=== PATIENT | female | born 1940 ===

== ENCOUNTER 2016-12-02 08:17 | Inpatient (IN) | payer OTHER ==
--- NOTE | 2016-12-02 08:40 | ED PDOC ---
HPI: Nose Bleed Time Seen by Provider: 12/02/16 08:21 Chief Complaint (Nursing): ENT Problem Chief Complaint (Provider): Nose bleed History Per: Patient History/Exam Limitations: no limitations Onset/Duration Of Symptoms: Mins Current Symptoms Are (Timing): Still Present Location Of Bleeding: Both Nares Symptoms Have Been: Continuous Severity: Moderate Anticoagulant/Antiplatlet Use?: Yes (warfarin) Additional Complaint(s): The pt is a 76yo female with PMHx of aortic and mitral valve replacement, pacemaker insertion, HTN, currently on Warfarin due to her valve replacement surgeries, presents to the ED for evaluation of spontaneous, atraumatic epistaxis from both nares. Pt reports she feels the blood dripping in the back of her throat. She denies any dizziness, lightheadedness and offers no additional medical complaints. Past Medical History Reviewed: Historical Data, Nursing Documentation, Vital Signs Vital Signs: Last Vital Signs Temp 98.3 F 12/02/16 08:27 Pulse 103 H 12/02/16 08:27 Resp 18 12/02/16 08:27 BP 194/95 H 12/02/16 08:27 Pulse Ox 98 12/02/16 08:27 - Medical History PMH: HTN - Surgical History Surgical History: Pacemaker Other surgeries: Aortic and mitral valve replacement - Family History Family History: States: Unknown Family Hx - Allergies Allergies/Adverse Reactions: Allergies Allergy/AdvReac Type Severity Reaction Status Date / Time Penicillins Allergy RASH Verified 12/02/16 08:27 Review of Systems ROS Statement: Except As Marked, All Systems Reviewed And Found Negative ENT: Positive for: Nose Discharge (bleeding from both nostrils) Cardiovascular: Negative for: Light Headedness Neurological: Negative for: Dizziness Physical Exam - Reviewed Nursing Documentation Reviewed: Yes Vital Signs Reviewed: Yes - Physical Exam Appears: Positive for: Well, Non-toxic, No Acute Distress Head Exam: Positive for: ATRAUMATIC, NORMAL INSPECTION, NORMOCEPHALIC Skin: Positive for: Normal Color (no ecchymosis or bruising noted). Negative for: Rash Eye Exam: Positive for: Normal appearance ENT: Positive for: Other (Oozing blood noted to both nares) Neck: Positive for: Normal, Supple Cardiovascular/Chest: Positive for: Irregularly Irregular Respiratory: Positive for: Normal Breath Sounds. Negative for: Respiratory Distress Gastrointestinal/Abdominal: Positive for: Normal Exam, Soft. Negative for: Tenderness Neurologic/Psych: Positive for: Alert, Oriented. Negative for: Motor/Sensory Deficits - Laboratory Results Result Diagrams: 12/02/16 09:10 12/02/16 09:10 - ECG O2 Sat by Pulse Oximetry: 98 (RA) Pulse Ox Interpretation: Normal - Progress Re-evaluation Time: 11:09 Condition: Re-examined (Episode of hypotension and tachycardia which responded to bolus IV saline. Bleeding stopped) Medical Decision Making Medical Decision Making: Time: 829 Impression: Epistaxis in setting of warfarin use Plan: * CMP * CBC * PT/INR * Reassess Scribe Attestation: Documented by Bety Chow acting as a scribe for Ethna Mccord MD. Provider Attestation: All medical record entries made by the Scribe were at my direction and personally dictated by me. I have reviewed the chart and agree that the record accurately reflects my personal performance of the history, physical exam, medical decision making, and the department course for this patient. I have also personally directed, reviewed, and agree with the discharge instructions and disposition. Disposition - Clinical Impression Clinical Impression: Epistaxis, Warfarin-induced coagulopathy, Hypotension - Patient ED Disposition Is Patient to be Admitted: Yes - Disposition Disposition Time: 11:13 Condition: FAIR - Pt Status Changed To: Hospital Disposition Of: Observation - POA Present On Arrival: None
[2016-12-02] MEDS ORDERED: Phenylephrine 0.5% Nasal Spray NAS ONE (09:09)
[2016-12-02] MEDS ORDERED: Sodium Chloride 0.9% 1,000 ML IV STA (09:14)
[2016-12-02 09:32] LABS: BASO % 0.3 % (0.0-2.0); EOS # 0.1 K/uL (0.0-0.7); EOS % 2.6 % (0.0-4.0); HEMATOCRIT 35.6 % (34.0-47.0); LYMPH # 1.1 K/uL (1.0-4.3); LYMPH % 18.9 % (20.0-40.0); MEAN CELL VOLUME 88.9 fl (81.0-99.0); MEAN CORPUSCULAR HEMOGLOBIN 31.2 pg (27.0-31.0); MEAN CORPUSCULAR HGB CONC 35.1 g/dL (33.0-37.0); MEAN PLATELET VOLUME 7.4 fl (7.2-11.7); MONO # 0.4 K/uL (0.0-0.8); NEUT % 71.2 % (50.0-75.0); RED CELL DISTRIBUTION WIDTH 13.2 % (11.5-14.5); WHITE BLOOD COUNT 5.6 K/uL (4.8-10.8)
[2016-12-02] MEDS ORDERED: Phenylephrine 0.25% NASAL Spray (15ML) NAS STA (09:35)
[2016-12-02 09:54] LABS: ALB/GLOB RATIO 1.2 (1.0-2.1); ALKALINE PHOSPHATASE 71 U/L (38-126); ALT/SGPT 31 U/L (9-52); AST/SGOT 36 U/L (14-36); BILIRUBIN,TOTAL 0.5 mg/dl (0.2-1.3); BLOOD UREA NITROGEN 16 mg/dl (7-17); CALCIUM 9.3 mg/dL (8.4-10.2); CARBON DIOXIDE 22 mmol/L (22-30); CHLORIDE 97 mmol/L (98-107); GFR AFRICAN-AMERICAN > 60; GLUCOSE,RANDOM 195 mg/dL (65-105); POTASSIUM 4.7 MMOL/L (3.6-5.0); SODIUM 131 mmol/l (132-148); TOTAL PROTEIN 8.4 G/DL (6.3-8.2)
[2016-12-02] MEDS: Metoprolol Succinate 50 mg XL Tab PO SCH (23:45)
[2016-12-03] MEDS: Insulin Regular 100 units/ml SC SCH ×4 (06:31→22:51)
[2016-12-03] MEDS: Levothyroxine 50 MCG TAB PO SCH (06:41)
[2016-12-03] MEDS ORDERED: Patient's Own Med (Linagliptin [Tradjenta] 5 MG) PO SCH (09:00)
[2016-12-03] MEDS: Metoprolol Succinate 50 mg XL Tab PO SCH (09:28)
--- NOTE | 2016-12-03 14:10 | HP ---
CHIEF COMPLAINT: Nosebleed. HISTORY OF PRESENT ILLNESS: This is a 76-year-old female with history of aortic and mitral valve rep lacement and pacemaker placement, hypertension, who is on long-term Coumadin for anticoagulation, who was having severe nosebleed which did not stop on its own, so patient was brought to Emergency Room and was admitted for further management. REVIEW OF SYSTEMS: Positive for nausea. Review of system otherwise is negative for headache, dizzin ess, syncope, loss of consciousness, chest pain, shortness of breath, nausea, vomiting, diarrhea, con stipation, any new joint or extremity pain. Review of systems of all other organ systems is unremark able. PAST MEDICAL HISTORY: Significant for hypertension and valvular heart disease. PAST SURGICAL HISTORY: Remarkable for aortic and mitral valve replacement and pacemaker placement. PERSONAL HISTORY: The patient is nonsmoker, nondrinker, no substance abuse. MEDICATIONS: The patient is on multiple medications, which is as per reconciliation sheet. ALLERGIES: THE PATIENT IS ALSO ALLERGIC TO PENICILLIN. FAMILY HISTORY: Noncontributory. PHYSICAL EXAMINATION: GENERAL: Well-built, well-nourished 76-year-old female in no acute distress. VITAL SIGNS: Temperature 98, pulse 94, respiration 18, blood pressure 142/90. No orthostatic change s. HEENT: Pupils reacting to light. NECK: No JVD, no thyromegaly, no lymphadenopathy, no nystagmus. No nosebleed at this time. HEART: S1, S2 normal, regular. No significant murmur, gallop or rub is heard. LUNGS: Shows good bilateral air exchange. No rales or rhonchi. ABDOMEN: Soft, nontender. No organomegaly, no fluid. Bowel sounds are plus. EXTREMITIES: No edema, no calf swelling, no tenderness, no acute ischemia. CENTRAL NERVOUS SYSTEM: Essentially unchanged and there is no sign of any acute gross focal motor or sensory neurological deficit. DIAGNOSTIC DATA: Available diagnostic data reviewed. Telemetry monitoring does not reveal significa nt arrhythmias. WBC 5.6, hemoglobin 12.5, hematocrit 35.6, platelet 260. INR is 2.49. Sodium 131, potassium 4.7, chloride 97, bicarb 22. Her SMA-12 is unremarkable. Accu-Cheks are 234 150, 137 and 195. Telemetry monitoring does not reveal significant arrhythmias. EKG shows sinus tachycardia with heart rate of 100. ADMITTING IMPRESSION: Epistaxis, hypercoagulable status, hypertension, status post aortic and mitral valve replacement. PLAN: As ordered. Case and plan discussed with patient. Salvatore Mtz MD cc: [id number] TT: 12/03/2016 14:10:17 mn
[2016-12-04] MEDS: Levothyroxine 50 MCG TAB PO SCH (06:14)
[2016-12-04] MEDS: Insulin Regular 100 units/ml SC SCH ×4 (06:32→21:58)
[2016-12-04] MEDS: Metoprolol Succinate 50 mg XL Tab PO SCH (09:54)
--- NOTE | 2016-12-04 11:21 | PN ---
DATE: 12/04/2016 The patient is seen and examined. Interim events noted. ENT consult is pending. The patient feels better. No nosebleed. No chest pain. No shortness of breath. PHYSICAL EXAMINATION: GENERAL: The patient is in no acute distress. VITAL SIGNS: Stable. HEART: S1, S2 normal, regular. LUNGS: Good bilateral air exchange. ABDOMEN: Soft, nontender. EXTREMITIES: No edema, no calf swelling, no tenderness, no acute ischemia. CENTRAL NERVOUS SYSTEM: Essentially unchanged. HEENT: Does not reveal any acute ____. DIAGNOSTIC DATA: Available diagnostic data reviewed. Telemetry monitoring does not show significant arrhythmia. INR is 2.18. Overall, the patient is medically stable, waiting for ENT evaluation. PLAN: As ordered. Salvatore Mtz MD cc: [id number] TT: 12/04/2016 11:20:39 Confirmation # [id number] Dictation # [id number] leigh
[2016-12-04 13:19] LABS: HEMATOCRIT 24.3 % (34.0-47.0); MEAN CELL VOLUME 89.9 fl (81.0-99.0); MEAN CORPUSCULAR HEMOGLOBIN 31.3 pg (27.0-31.0); MEAN CORPUSCULAR HGB CONC 34.8 g/dL (33.0-37.0); RED CELL DISTRIBUTION WIDTH 13.3 % (11.5-14.5); WHITE BLOOD COUNT 4.7 K/uL (4.8-10.8)
--- NOTE | 2016-12-04 21:59 | CON ---
DATE: 12/04/2016 REASON FOR CONSULTATION: Epistaxis. HISTORY OF PRESENT ILLNESS: This is a 76-year-old female who presented to the ER with epistaxis. Th e patient had her nose packed in the Emergency Room and she has had no bleeding since. Epistaxis was moderate in intensity and constant. She was seen in the ER. However, there is no epistaxis now. T he pack was removed yesterday and the patient has had no bleeding since. PAST MEDICAL HISTORY: As noted in the chart by me. MEDICATIONS: As noted in the chart by me, including blood thinners. PHYSICAL EXAMINATION: HEAD: Atraumatic, normocephalic. FACE: Good facial movements bilaterally. CONSTITUTIONAL: Well-developed, well-nourished. COMMUNICATION: Communicates very appropriately. EXTERNAL NOSE AND EARS: No masses, no lesions, no erythema, no edema. INTERNAL NOSE: Deviated septum, no masses, no lesions, no erythema, no edema, no bleeding. ORAL CAVITY AND OROPHARYNX: No masses, no lesions, no erythema, no edema. LIPS AND GUMS: No masses, no lesions, no erythema, no edema. NECK: Supple. THYROID: No thyromegaly, no goiter. LYMPHATICS: No lymphadenopathy of his neck. ASSESSMENT: 1. Deviated septum. 2. Epistaxis, which has resolved. PLAN: Since the patient is no longer bleeding for 24 hours, no ENT intervention is needed at this po int. Recommend saline spray to the nose, 3 sprays 3 times a day, and bacitracin ointment to the nose twice a day, and for prophylaxis to make sure the patient does not bleed again. Mynor Gallagher MD cc: [id number] TT: 12/04/2016 21:58:35 Confirmation # [id number] Dictation # [id number] dn
[2016-12-05] MEDS: Levothyroxine 50 MCG TAB PO SCH (05:46)
[2016-12-05 06:47] LABS: HEMATOCRIT 24.2 % (34.0-47.0); MEAN CELL VOLUME 89.8 fl (81.0-99.0); MEAN CORPUSCULAR HEMOGLOBIN 31.9 pg (27.0-31.0); MEAN CORPUSCULAR HGB CONC 35.6 g/dL (33.0-37.0); RED CELL DISTRIBUTION WIDTH 13.5 % (11.5-14.5)
[2016-12-05 06:55] LABS: ALB/GLOB RATIO 1.2 (1.0-2.1); ALKALINE PHOSPHATASE 49 U/L (38-126); ALT/SGPT 28 U/L (9-52); AST/SGOT 25 U/L (14-36); BILIRUBIN,TOTAL 0.2 mg/dl (0.2-1.3); BLOOD UREA NITROGEN 28 mg/dl (7-17); CALCIUM 9.2 mg/dL (8.4-10.2); CARBON DIOXIDE 22 mmol/L (22-30); CHLORIDE 99 mmol/L (98-107); GFR AFRICAN-AMERICAN > 60; GLUCOSE,RANDOM 121 mg/dL (65-105); POTASSIUM 4.9 MMOL/L (3.6-5.0); SODIUM 130 mmol/l (132-148); TOTAL PROTEIN 6.7 G/DL (6.3-8.2)
[2016-12-05] MEDS: Metoprolol Succinate 50 mg XL Tab PO SCH (08:48)
[2016-12-05] MEDS: Insulin Regular 100 units/ml SC SCH ×4 (08:49→22:00)
--- NOTE | 2016-12-05 10:54 | PN ---
DATE: 12/05/2016 The patient seen and examined. Interim events noted. Consults noted and appreciated. ENT followup and intervention noted and appreciated. The patient remains in progressive care unit on telemetry mo nitoring. The patient feels okay. Denies any complaint of chest pain, shortness of breath, palpitat ion, dizziness or weakness. PHYSICAL EXAMINATION: GENERAL: The patient is in no acute distress. VITAL SIGNS: Stable. No orthostatic changes. HEART: S1, S2 normal, regular. LUNGS: Good bilateral air exchange. ABDOMEN: Soft, nontender. EXTREMITIES: No edema, no calf swelling, no tenderness, no acute ischemia. CENTRAL NERVOUS SYSTEM: Essentially unchanged. DIAGNOSTIC DATA: Available diagnostic data reviewed. Hemoglobin remains low. GI consult is pending . Telemetry monitoring does not reveal significant arrhythmia. Overall, patient's general medical is stable. PLAN: As ordered. Salvatore Mtz MD cc: [id number] TT: 12/05/2016 10:53:07 Confirmation # [id number] Dictation # [id number] siobhan
--- NOTE | 2016-12-05 13:31 | CP.PCM.CON ---
History of Present Illness - History of Present Illness History of Present Illness: Gi consult requested by Dr Mtz- This is a 76 yr old female with PMHx of aortic and mitral valve replacement, pacemaker insertion, HTN, currently on warfarin due to her valve replacement surgeries, admitted with 2 day history of spontaneous nose bleeds. She is s/p packing and anti coagulation was discontinued. GI consult was requested for FOBT = an ddark stools. Patient states she feels she may have swallowed some blood. She has dropped Hb from 12- > 8. Denies rectal bleeding, melena or hematemesis previously. Had EGd 7 years ago and thinks it was normal. She has never had colonoscopy. Review of Systems - Review of Systems Review of Systems: 12 point ROS unremarkable except that documented in HPI Past Patient History - Past Medical History & Family History Past Medical History?: Yes - Past Social History Smoking Status: Never Smoked - CARDIAC Hx Cardiac Disorders: Yes Hx Hypertension: Yes Hx Pacemaker: Yes Other/Comment: aortic and mitral valve replacement - PULMONARY Hx Respiratory Disorders: No - NEUROLOGICAL Hx Neurological Disorder: Yes Hx Transient Ischemic Attacks (TIA): Yes - HEENT Hx HEENT Problems: No - RENAL Hx Chronic Kidney Disease: No - ENDOCRINE/METABOLIC Hx Endocrine Disorders: Yes Hx Diabetes Mellitus Type 2: Yes Hx Hypothyroidism: Yes - HEMATOLOGICAL/ONCOLOGICAL Hx Blood Disorders: No - INTEGUMENTARY Hx Dermatological Problems: No - MUSCULOSKELETAL/RHEUMATOLOGICAL Hx Musculoskeletal Disorders: No Hx Falls: No - GASTROINTESTINAL Hx Gastrointestinal Disorders: No - GENITOURINARY/GYNECOLOGICAL Hx Genitourinary Disorders: No - PSYCHIATRIC Hx Psychophysiologic Disorder: No Hx Substance Use: No - SURGICAL HISTORY Hx Surgeries: Yes Other/Comment: aortic and mitral valve replacement; pacemaker - ANESTHESIA Hx Anesthesia: Yes Hx Anesthesia Reactions: No Hx Malignant Hyperthermia: No Meds Allergies/Adverse Reactions: Allergies Allergy/AdvReac Type Severity Reaction Status Date / Time Penicillins Allergy RASH Verified 12/02/16 08:27 - Medications Medications: Current Medications Insulin Human Regular (Humulin R) 0 units SC ACHS [facility] PRN Reason: Protocol Last Admin: 12/05/16 08:49 Dose: Not Given Levothyroxine Sodium (Synthroid) 50 mcg PO DAILY@0630 [facility] Last Admin: 12/05/16 05:46 Dose: 50 mcg Losartan Potassium (Cozaar) 100 mg PO DAILY [facility] Metformin HCl (Glucophage) 1,000 mg PO BID [facility] Last Admin: 12/05/16 08:49 Dose: 1,000 mg Metoprolol Succinate (Toprol Xl) 50 mg PO DAILY [facility] Last Admin: 12/05/16 08:48 Dose: 50 mg Sitagliptin Phosphate (Januvia) 50 mg PO DAILY [facility] Last Admin: 12/05/16 08:48 Dose: 50 mg Physical Exam - Constitutional Appears: Non-toxic, No Acute Distress, Younger Than Stated Age - Head Exam Head Exam: ATRAUMATIC, NORMAL INSPECTION, NORMOCEPHALIC - Eye Exam Eye Exam: EOMI, Normal appearance, PERRL - ENT Exam ENT Exam: Mucous Membranes Moist, Normal Exam - Neck Exam Neck exam: Positive for: Normal Inspection - Respiratory Exam Respiratory Exam: Clear to Auscultation Bilateral, NORMAL BREATHING PATTERN - Cardiovascular Exam Cardiovascular Exam: REGULAR RHYTHM - GI/Abdominal Exam GI & Abdominal Exam: Normal Bowel Sounds, Soft. absent: Tenderness - Neurological Exam Neurological exam: Alert, CN II-XII Intact, Normal Gait, Oriented x3, Reflexes Normal - Psychiatric Exam Psychiatric exam: Normal Affect, Normal Mood - Skin Skin Exam: Dry, Intact, Normal Color, Warm Results - Vital Signs Recent Vital Signs: Last Vital Signs Temp 97.5 F L 12/05/16 12:19 Pulse 86 12/05/16 12:19 Resp 18 12/05/16 12:19 BP 156/73 H 12/05/16 12:19 Pulse Ox 98 12/05/16 12:19 - Labs Result Diagrams: 12/05/16 06:10 12/05/16 06:10 Labs: Laboratory Results - last 24 hr 12/04/16 12/04/16 12/04/16 05:00 12:56 16:02 WBC 4.7 L RBC 2.70 L Hgb 8.5 L D Hct 24.3 L MCV 89.9 MCH 31.3 H MCHC 34.8 RDW 13.3 Plt Count 204 PT INR Sodium Potassium Chloride Carbon Dioxide Anion Gap BUN Creatinine Est GFR ( Amer) Est GFR (Non-Af Amer) POC Glucose (mg/dL) 82 Random Glucose Calcium Total Bilirubin AST ALT Alkaline Phosphatase Total Protein Albumin Globulin Albumin/Globulin Ratio Stool Occult Blood Positive H 12/04/16 12/05/16 12/05/16 21:16 05:33 06:10 WBC 5.0 RBC 2.70 L Hgb 8.6 L Hct 24.2 L MCV 89.8 MCH 31.9 H MCHC 35.6 RDW 13.5 Plt Count 191 PT INR Sodium Potassium Chloride Carbon Dioxide Anion Gap BUN Creatinine Est GFR ( Amer) Est GFR (Non-Af Amer) POC Glucose (mg/dL) 106 131 H Random Glucose Calcium Total Bilirubin AST ALT Alkaline Phosphatase Total Protein Albumin Globulin Albumin/Globulin Ratio Stool Occult Blood 12/05/16 12/05/16 12/05/16 06:10 06:10 11:29 WBC RBC Hgb Hct MCV MCH MCHC RDW Plt Count PT 12.3 H INR 1.18 H Sodium 130 L Potassium 4.9 Chloride 99 Carbon Dioxide 22 Anion Gap 14 BUN 28 H Creatinine 0.9 Est GFR ( Amer) > 60 Est GFR (Non-Af Amer) > 60 POC Glucose (mg/dL) 198 H Random Glucose 121 H Calcium 9.2 Total Bilirubin 0.2 AST 25 ALT 28 Alkaline Phosphatase 49 Total Protein 6.7 Albumin 3.7 Globulin 3.0 Albumin/Globulin Ratio 1.2 Stool Occult Blood Assessment & Plan - Assessment and Plan (Free Text) Assessment: 76 yr old F with valve replacement and PCM on coumadin admitted with spontanoeus epistaxis now resolved. Anti coagulation on hold but dropped Hb by 3 gms with FOBT + and dark stools. Will scheudle EGD in am to rule ulcer disease. Plan: - NPO past midnight - EGD tomorrow afternoon - Discussed with patient at bedside risk, benefit and alternatives - PPI daily in am - Will follow
[2016-12-06] MEDS: Insulin Regular 100 units/ml SC SCH ×4 (06:38→22:19)
[2016-12-06] MEDS: Levothyroxine 50 MCG TAB PO SCH (06:39)
[2016-12-06] MEDS: Metoprolol Succinate 50 mg XL Tab PO SCH (10:05)
--- NOTE | 2016-12-06 10:27 | CP.PCM.PN ---
Subjective - Date & Time of Evaluation Date of Evaluation: 12/06/16 Time of Evaluation: 10:23 - Subjective Subjective: d/w attending. no overnight events. no epistaxis. denies hemoptysis, hematochezia, bruising, other sites of bleeding. NPO currently for EGD today. Objective - Vital Signs/Intake and Output Vital Signs (last 24 hours): Temp Pulse Resp BP Pulse Ox 98.0 F 97 H 18 162/75 H 96 12/06/16 07:48 12/06/16 07:48 12/06/16 07:48 12/06/16 07:48 12/06/16 07:48 - Medications Medications: Current Medications Insulin Human Regular (Humulin R) 0 units SC ACHS [facility] PRN Reason: Protocol Last Admin: 12/06/16 06:38 Dose: Not Given Levothyroxine Sodium (Synthroid) 50 mcg PO DAILY@0630 [facility] Last Admin: 12/06/16 06:39 Dose: Not Given Losartan Potassium (Cozaar) 100 mg PO DAILY [facility] Last Admin: 12/06/16 10:04 Dose: 100 mg Metformin HCl (Glucophage) 1,000 mg PO BID [facility] Last Admin: 12/06/16 10:04 Dose: Not Given Metoprolol Succinate (Toprol Xl) 50 mg PO DAILY [facility] Last Admin: 12/06/16 10:05 Dose: 50 mg Sitagliptin Phosphate (Januvia) 50 mg PO DAILY [facility] Last Admin: 12/06/16 10:05 Dose: Not Given - Labs Labs: 12/05/16 06:10 12/05/16 06:10 PT 12.3 SECONDS (9.6-11.2) H 12/05/16 06:10 INR 1.18 (0.92-1.08) H 12/05/16 06:10 - Constitutional Appears: No Acute Distress - Head Exam Head Exam: NORMAL INSPECTION - Eye Exam Eye Exam: Normal appearance - ENT Exam ENT Exam: Mucous Membranes Moist - Neck Exam Neck Exam: Normal Inspection - Respiratory Exam Respiratory Exam: Clear to Ausculation Bilateral - Cardiovascular Exam Cardiovascular Exam: REGULAR RHYTHM - GI/Abdominal Exam GI & Abdominal Exam: Soft. absent: Tenderness - Extremities Exam Extremities Exam: Normal Inspection - Back Exam Back Exam: NORMAL INSPECTION - Neurological Exam Neurological Exam: Alert, Oriented x3 - Skin Skin Exam: Dry, Warm Assessment and Plan (1) Epistaxis Status: Acute (2) Anemia Status: Acute - Assessment and Plan (Free Text) Assessment: -held coumadin. target INR 2.5-3.5, h/o valve replacement -EGD today -epistaxis resolved -GI on board, appreciate input -ENT on board, appreciate input -NPO -c/w home meds -FOBT +
[2016-12-06] MEDS ORDERED: Etomidate 20 mg/10ml Inj IV ONE (13:03)
[2016-12-06] MEDS ORDERED: Lactated Ringer's 500 ML IV ONE (13:08)
[2016-12-07] MEDS: Levothyroxine 50 MCG TAB PO SCH (05:45)
[2016-12-07 06:36] LABS: HEMATOCRIT 24.5 % (34.0-47.0); MEAN CELL VOLUME 89.6 fl (81.0-99.0); MEAN CORPUSCULAR HEMOGLOBIN 31.8 pg (27.0-31.0); MEAN CORPUSCULAR HGB CONC 35.5 g/dL (33.0-37.0); RED CELL DISTRIBUTION WIDTH 13.4 % (11.5-14.5); WHITE BLOOD COUNT 4.4 K/uL (4.8-10.8)
[2016-12-07] MEDS: Insulin Regular 100 units/ml SC SCH ×4 (06:47→23:03)
[2016-12-07 07:08] LABS: PARTIAL THROMBOPLASTIN TIME 27.2 SECONDS (23.3-32.5)
[2016-12-07 07:48] LABS: ALB/GLOB RATIO 1.2 (1.0-2.1); ALKALINE PHOSPHATASE 45 U/L (38-126); ALT/SGPT 24 U/L (9-52); AST/SGOT 26 U/L (14-36); BILIRUBIN,TOTAL 0.2 mg/dl (0.2-1.3); BLOOD UREA NITROGEN 23 mg/dl (7-17); CALCIUM 9.1 mg/dL (8.4-10.2); CARBON DIOXIDE 25 mmol/L (22-30); CHLORIDE 101 mmol/L (98-107); GFR AFRICAN-AMERICAN > 60; GLUCOSE,RANDOM 97 mg/dL (65-105); POTASSIUM 5.1 MMOL/L (3.6-5.0); SODIUM 134 mmol/l (132-148); TOTAL PROTEIN 6.9 G/DL (6.3-8.2)
[2016-12-07] MEDS: Metoprolol Succinate 50 mg XL Tab PO SCH (09:38)
[2016-12-07] MEDS: Enoxaparin 60 mg Syringe SC SCH ×2 (09:39→22:00)
--- NOTE | 2016-12-07 10:07 | CP.PCM.PN ---
Subjective - Date & Time of Evaluation Date of Evaluation: 12/07/16 Time of Evaluation: 10:00 - Subjective Subjective: s/p EGD for drop in Hb and dark stools. No ulcer found and no stigmata of recent bleeding See full EGD report in chart H pylori biopsies done. Objective - Vital Signs/Intake and Output Vital Signs (last 24 hours): Temp Pulse Resp BP Pulse Ox 97.9 F 83 18 126/72 98 12/07/16 08:21 12/07/16 09:38 12/07/16 08:21 12/07/16 09:38 12/07/16 08:21 - Medications Medications: Current Medications Enoxaparin Sodium (Lovenox) 45 mg SC Q12 [facility] PRN Reason: Protocol Last Admin: 12/07/16 09:39 Dose: 45 mg Insulin Human Regular (Humulin R) 0 units SC ACHS [facility] PRN Reason: Protocol Last Admin: 12/07/16 06:47 Dose: Not Given Levothyroxine Sodium (Synthroid) 50 mcg PO DAILY@0630 [facility] Last Admin: 12/07/16 05:45 Dose: 50 mcg Losartan Potassium (Cozaar) 100 mg PO DAILY [facility] Last Admin: 12/07/16 09:39 Dose: 100 mg Metformin HCl (Glucophage) 1,000 mg PO BID [facility] Last Admin: 12/07/16 09:37 Dose: 1,000 mg Metoprolol Succinate (Toprol Xl) 50 mg PO DAILY [facility] Last Admin: 12/07/16 09:38 Dose: 50 mg Sitagliptin Phosphate (Januvia) 50 mg PO DAILY [facility] Last Admin: 12/07/16 09:38 Dose: 50 mg Warfarin Sodium (Coumadin) 2 mg PO QD5 [facility] PRN Reason: Protocol Stop: 12/07/16 17:01 - Labs Labs: 12/07/16 06:10 12/07/16 06:10 PT 11.1 SECONDS (9.6-11.2) 12/07/16 06:10 INR 1.07 (0.92-1.08) 12/07/16 06:10 APTT 27.2 SECONDS (23.3-32.5) 12/07/16 06:10 - Constitutional Appears: Well - Eye Exam Eye Exam: EOMI, Normal appearance, PERRL - Neck Exam Neck Exam: Full ROM, Normal Inspection. absent: Lymphadenopathy - Respiratory Exam Respiratory Exam: Clear to Ausculation Bilateral, NORMAL BREATHING PATTERN - Cardiovascular Exam Cardiovascular Exam: REGULAR RHYTHM, +S1, +S2. absent: Murmur - GI/Abdominal Exam GI & Abdominal Exam: Soft, Normal Bowel Sounds. absent: Tenderness Assessment and Plan - Assessment and Plan (Free Text) Assessment: 76 yr old F with valve replacement on coumdain s/p EGD with no stigmata of recent bleeding and no ulcer. Cleared from GI perspective to restart coumadin. Follow as outpatient for H pylori biopsies with me No further GI work up necessary Dark stool likely due to blood that she ingested Diet as tolerated Thank you for letting us participate in the care of your patient
--- NOTE | 2016-12-07 13:18 | CP.PCM.PN ---
Subjective - Date & Time of Evaluation Date of Evaluation: 12/07/16 Time of Evaluation: 08:16 - Subjective Subjective: Patient seen and examined at bedside with attending. No acute events overnight. Patient states feels well. s/p EGD yesterday. No fever, chills, gross bleeding, headache, chest pain, palpitations, abdominal pain, or changes in bowel/urinary habits. Objective - Vital Signs/Intake and Output Vital Signs (last 24 hours): Temp Pulse Resp BP Pulse Ox 97.8 F 93 H 18 108/66 99 12/07/16 12:29 12/07/16 12:29 12/07/16 12:29 12/07/16 12:29 12/07/16 12:29 - Medications Medications: Current Medications Enoxaparin Sodium (Lovenox) 45 mg SC Q12 [facility] PRN Reason: Protocol Last Admin: 12/07/16 09:39 Dose: 45 mg Insulin Human Regular (Humulin R) 0 units SC ACHS [facility] PRN Reason: Protocol Last Admin: 12/07/16 06:47 Dose: Not Given Levothyroxine Sodium (Synthroid) 50 mcg PO DAILY@0630 [facility] Last Admin: 12/07/16 05:45 Dose: 50 mcg Losartan Potassium (Cozaar) 100 mg PO DAILY [facility] Last Admin: 12/07/16 09:39 Dose: 100 mg Metformin HCl (Glucophage) 1,000 mg PO BID [facility] Last Admin: 12/07/16 09:37 Dose: 1,000 mg Metoprolol Succinate (Toprol Xl) 50 mg PO DAILY [facility] Last Admin: 12/07/16 09:38 Dose: 50 mg Sitagliptin Phosphate (Januvia) 50 mg PO DAILY [facility] Last Admin: 12/07/16 09:38 Dose: 50 mg Warfarin Sodium (Coumadin) 2 mg PO QD5 [facility] PRN Reason: Protocol Stop: 12/07/16 17:01 - Labs Labs: 12/07/16 06:10 12/07/16 06:10 PT 11.1 SECONDS (9.6-11.2) 12/07/16 06:10 INR 1.07 (0.92-1.08) 12/07/16 06:10 APTT 27.2 SECONDS (23.3-32.5) 12/07/16 06:10 - Constitutional Appears: Well, Non-toxic, No Acute Distress - Head Exam Head Exam: ATRAUMATIC, NORMAL INSPECTION, NORMOCEPHALIC - Eye Exam Eye Exam: EOMI, Normal appearance, PERRL - Neck Exam Neck Exam: Full ROM, Normal Inspection. absent: Lymphadenopathy - Respiratory Exam Respiratory Exam: Clear to Ausculation Bilateral, NORMAL BREATHING PATTERN - Cardiovascular Exam Cardiovascular Exam: REGULAR RHYTHM, +S1, +S2. absent: Murmur - GI/Abdominal Exam GI & Abdominal Exam: Soft, Normal Bowel Sounds. absent: Tenderness - Extremities Exam Extremities Exam: Normal Inspection. absent: Calf Tenderness - Back Exam Back Exam: NORMAL INSPECTION - Neurological Exam Neurological Exam: Alert, Awake, Oriented x3 - Psychiatric Exam Psychiatric exam: Normal Affect, Normal Mood - Skin Skin Exam: Dry, Intact, Normal Color, Warm Assessment and Plan (1) H/O aortic valve replacement Status: Acute (2) H/O mitral valve replacement Status: Acute (3) Anemia Status: Acute (4) Epistaxis Status: Acute - Assessment and Plan (Free Text) Assessment: 76 yr old F with h/o aortic and mitral valve replacement on Coumadin admitted for epistaxis and anemia s/p EGD. Plan: -Asymptomatic, no epistaxis at this time -Restart coumadin target INR 2.5-3.5, h/o valve replacement -INR subtherapeutic at this time (INR 1.07) -GI on board, appreciate input -EGD completed due to drop in Hgb/fobt + - See full EGD report in chart -Cleared from GI perspective to restart coumadin. Follow as outpatient for H pylori biopsies. -Diet as tolerated -ENT on board, appreciate input -c/w home meds
[2016-12-08] MEDS: Insulin Regular 100 units/ml SC SCH ×4 (06:38→22:35)
[2016-12-08] MEDS: Levothyroxine 50 MCG TAB PO SCH (06:42)
--- NOTE | 2016-12-08 08:58 | CP.PCM.PN ---
Subjective - Date & Time of Evaluation Date of Evaluation: 12/08/16 Time of Evaluation: 07:56 - Subjective Subjective: Patient seen and examined at bedside with attending. No acute events overnight. Patient states feels well. No fever, chills, gross bleeding, headache, chest pain, palpitations, abdominal pain, or changes in bowel/urinary habits. Mild headache this am from sleeping position, resolved during evaluation. No changes in vision or focal deficits. Objective - Vital Signs/Intake and Output Vital Signs (last 24 hours): Temp Pulse Resp BP Pulse Ox 97.7 F 90 16 121/78 99 12/08/16 08:18 12/08/16 08:18 12/08/16 08:18 12/08/16 08:18 12/08/16 08:18 - Medications Medications: Current Medications Enoxaparin Sodium (Lovenox) 45 mg SC Q12 [facility] PRN Reason: Protocol Last Admin: 12/07/16 22:00 Dose: 45 mg Insulin Human Regular (Humulin R) 0 units SC ACHS [facility] PRN Reason: Protocol Last Admin: 12/08/16 06:38 Dose: Not Given Levothyroxine Sodium (Synthroid) 50 mcg PO DAILY@0630 [facility] Last Admin: 12/08/16 06:42 Dose: 50 mcg Losartan Potassium (Cozaar) 100 mg PO DAILY [facility] Last Admin: 12/07/16 09:39 Dose: 100 mg Metformin HCl (Glucophage) 1,000 mg PO BID [facility] Last Admin: 12/07/16 18:00 Dose: 1,000 mg Metoprolol Succinate (Toprol Xl) 50 mg PO DAILY [facility] Last Admin: 12/07/16 09:38 Dose: 50 mg Sitagliptin Phosphate (Januvia) 50 mg PO DAILY [facility] Last Admin: 12/07/16 09:38 Dose: 50 mg - Labs Labs: 12/07/16 06:10 12/07/16 06:10 PT 11.0 Seconds (9.8-13.1) 12/08/16 05:50 INR 1.1 (0.9-1.2) 12/08/16 05:50 APTT 27.2 SECONDS (23.3-32.5) 12/07/16 06:10 - Constitutional Appears: Well - Head Exam Head Exam: ATRAUMATIC, NORMAL INSPECTION, NORMOCEPHALIC - Eye Exam Eye Exam: EOMI, Normal appearance, PERRL - Neck Exam Neck Exam: Full ROM, Normal Inspection. absent: Tenderness - Respiratory Exam Respiratory Exam: Clear to Ausculation Bilateral, NORMAL BREATHING PATTERN - Cardiovascular Exam Cardiovascular Exam: REGULAR RHYTHM, +S1, +S2. absent: Murmur - GI/Abdominal Exam GI & Abdominal Exam: Soft, Normal Bowel Sounds. absent: Tenderness - Extremities Exam Extremities Exam: Normal Inspection. absent: Calf Tenderness - Back Exam Back Exam: NORMAL INSPECTION - Neurological Exam Neurological Exam: Alert, Awake, Oriented x3 - Psychiatric Exam Psychiatric exam: Normal Affect, Normal Mood - Skin Skin Exam: Dry, Intact, Normal Color, Warm Assessment and Plan (1) H/O aortic valve replacement Status: Acute (2) H/O mitral valve replacement Status: Acute (3) Anemia Status: Acute (4) Epistaxis Status: Acute - Assessment and Plan (Free Text) Assessment: 76 yr old F with h/o aortic and mitral valve replacement on Coumadin admitted for epistaxis and anemia s/p EGD. Improving though INR subtherapeutic. Plan: -Asymptomatic, no epistaxis at this time -Coumadin target INR 2.5-3.5, h/o valve replacement -INR subtherapeutic at this time (INR 1.1) -Continue bridging therapy (Lovenox 45mg BID) -GI on board, appreciate input -EGD completed due to drop in Hgb/fobt + - See full EGD report in chart -Cleared from GI perspective to restart coumadin. Follow as outpatient for H pylori biopsies. -Heart healthy diet -ENT on board, appreciate input -c/w home meds
[2016-12-08] MEDS: Enoxaparin 60 mg Syringe SC SCH ×2 (09:16→22:34)
[2016-12-08] MEDS: Metoprolol Succinate 50 mg XL Tab PO SCH (09:17)
[2016-12-09] MEDS: Levothyroxine 50 MCG TAB PO SCH (06:45)
[2016-12-09] MEDS: Insulin Regular 100 units/ml SC SCH ×4 (06:45→22:06)
[2016-12-09] MEDS: Metoprolol Succinate 50 mg XL Tab PO SCH (08:57)
[2016-12-09] MEDS: Enoxaparin 60 mg Syringe SC SCH ×2 (08:59→22:03)
--- NOTE | 2016-12-09 09:41 | PN ---
DATE: 12/09/2016 The patient seen and examined. Interim events noted. The patient remains in progressive care unit. The patient feels okay. No chest pain, no shortness of breath, no dizziness, no nosebleed. PHYSICAL EXAMINATION: GENERAL: The patient is in no acute distress. VITAL SIGNS: Stable. HEART: S1, S2 normal, regular. LUNGS: Good bilateral air exchange. ABDOMEN: Soft, nontender. EXTREMITIES: No edema, no calf swelling, no tenderness, no acute ischemia. CENTRAL NERVOUS SYSTEM: Essentially unchanged. DIAGNOSTIC DATA: Available diagnostic data reviewed. Yesterday's INR was 1.1. Overall, patient's general medical condition is stable. INR is still not therapeutic. PLAN: As ordered. Case and plan discussed with patient. Salvatore Mtz MD cc: [id number] TT: 12/09/2016 09:40:43 Confirmation # [id number] Dictation # [id number] tn
[2016-12-10] MEDS: Insulin Regular 100 units/ml SC SCH ×4 (06:31→21:49)
[2016-12-10] MEDS: Levothyroxine 50 MCG TAB PO SCH (06:35)
[2016-12-10 08:18] LABS: HEMATOCRIT 23.9 % (34.0-47.0); MEAN CELL VOLUME 89.1 fl (81.0-99.0); MEAN CORPUSCULAR HEMOGLOBIN 31.5 pg (27.0-31.0); MEAN CORPUSCULAR HGB CONC 35.3 g/dL (33.0-37.0); RED CELL DISTRIBUTION WIDTH 13.5 % (11.5-14.5); WHITE BLOOD COUNT 4.6 K/uL (4.8-10.8)
[2016-12-10] MEDS: Enoxaparin 60 mg Syringe SC SCH ×2 (08:53→21:48)
[2016-12-10] MEDS: Metoprolol Succinate 50 mg XL Tab PO SCH (08:54)
--- NOTE | 2016-12-10 08:56 | PN ---
DATE: 12/10/2016 The patient seen and examined. Interim events noted. The patient remains in progressive care unit. The patient feels okay. No chest pain, no shortness of breath, no bleeding, no dizziness, no loss o f consciousness. PHYSICAL EXAMINATION: GENERAL: The patient is in no acute distress. VITAL SIGNS: Stable. HEART: S1, S2 normal, regular. LUNGS: Good bilateral air entry. ABDOMEN: Soft, nontender. EXTREMITIES: No edema, no calf swelling, no tenderness, no acute ischemia. CENTRAL NERVOUS SYSTEM: Essentially unchanged. DIAGNOSTIC DATA: Available reviewed. INR is only 1. Overall, patient is medically stable. PLAN: As ordered. Salvatore Mtz MD cc: [id number] TT: 12/10/2016 08:56:15 Confirmation # [id number] Dictation # [id number]
--- NOTE | 2016-12-10 14:19 | CP.PCM.CON ---
History of Present Illness - History of Present Illness History of Present Illness: I was asked to see patient by Dr. Mtz. Patient is a 76 year old female with PMH HTN, valvular heart disease s/p AVR/ MVR (porcine) , s/p PPM who presents with epistaxis. She is maintained on coumadin 6 mg daily due to previous CVA and is folllowed by a ramp boss in [place]. The patient had a 3 g drop in Hgb. She is s/p EGD which ruled out an upper GI source of her anemia. The patient was noted to have a first degree AV block on EKG. She denies dizziness or syncope. Review of Systems - Constitutional Constitutional: absent: As Per HPI, Anorexia, Chills, Daytime Sleepiness, Excessive Sweating, Fatigue, Fever, Frequent Falls, Headache, Increased Appetite , Lethargy, Malaise, Night Sweats, Snoring, Sleep Apnea, Weight Gain, Weight Loss, Weakness, Other - EENT Eyes: absent: As Per HPI, Blind Spots, Blurred Vision, Change in Vision, Decreased Night Vision, Diplopia, Discharge, Dry Eye, Exophthalmos, Floaters, Irritation, Itchy Eyes, Loss of Peripheral Vision, Pain, Photophobia, Requires Corrective Lenses, Sees Flashes, Spots in Vision, Tunnel Vision, Other Visual Disturbances, Loss of Vision, Other Ears: absent: As Per HPI, Decreased Hearing, Ear Discharge, Ear Pain, Tinnitus, Abnormal Hearing, Disequilibrium, Dizziness, Other Nose/Mouth/Throat: Epistaxis - Cardiovascular Cardiovascular: absent: As Per HPI, Acrocyanosis, Chest Pain, Chest Pain at Rest , Chest Pain with Activity, Claudication, Diaphoresis, Dyspnea, Dyspnea on Exertion, Edema, Irregular Heart Rhythm, Pain Radiating to Arm/Neck/Jaw, Leg Edema, Leg Ulcers, Lightheadedness, Orthopnea, Palpitations, Paroxysmal Nocturnal Dyspnea, Pedal Edema, Radiating Pain, Rapid Heart Rate, Slow Heart Rate, Syncope, Other - Respiratory Respiratory: absent: As Per HPI, Cough, Dyspnea, Hemoptysis, Dyspnea on Exertion , Wheezing, Snoring, Stridor, Pain on Inspiration, Chest Congestion, Excessive Mucous Production, Change in Mucous Color, Pain with Coughing, Other - Gastrointestinal Gastrointestinal: absent: As Per HPI, Abdominal Pain, Belching, Bloating, Change in Bowel Habits, Change in Stool Character, Coffee Ground Emesis, Constipation, Cramping, Diarrhea, Dyspepsia, Dysphagia, Early Satiety, Excessive Flatus, Fecal Incontinence, Heartburn, Hematemesis, Hematochezia, Loose Stools, Melena, Nausea, Odynophagia, Temesmus, Vomiting, Other - Genitourinary Genitourinary: absent: As Per HPI, Change in Urinary Stream, Difficulty Urinating, Dysuria, Flank Pain, Hematuria, Pyuria, Nocturia, Urinary Incontinence, Urinary Frequency, Urinary Hesitance, Urinary Urgency, Voiding Freq/Small Amts, Freq UTI, Hx Renal/Bladder Calculi, Hx /Renal Surgery, Bladder Distension, Other - Musculoskeletal Musculoskeletal: absent: As Per HPI, Abnormal Gait, Arthralgias, Atrophy, Back Pain, Deformity, Joint Swelling, Limited Range of Motion, Loss of Height, Muscle Cramps, Muscle Weakness, Myalgias, Neck Pain, Numbness, Radiating Pain into Limb, Stiffness, Tingling, Other - Integumentary Integumentary: absent: As Per HPI, Acne, Alopecia, Bleeding Lesions, Change in Hair, Change in Nails, Change in Pigmentation, Changing Lesions, Dry Skin, Erythema, Furuncle, Hirsutism, Lesions, New Lesions, Non-Healing Lesions, Photosensitivity, Pruritus, Rash, Skin Pain, Skin Ulcer, Sores, Striae, Swelling , Unusual Bruising, Wounds, Jaundice, Other - Neurological Neurological: absent: As Per HPI, Abnormal Gait, Abnormal Hearing, Abnormal Movements, Abnormal Speech, Behavioral Changes, Burning Sensations, Confusion, Convulsions, Disequilibrium, Dizziness, Numbness, Focal Weakness, Frequent Falls , Headaches, Lack of Coordination, Loss of Vision, Memory Loss, Paresthesias, Radicular Pain, Restless Legs, Sensory Deficit, Syncope, Tingling, Tremor, Vertigo, Weakness, Other Visual Disturbances, Other - Psychiatric Psychiatric: absent: As Per HPI, Abnormal Sleep Pattern, Anhedonia, Anxiety, Auditory Hallucinations, Behavioral Changes, Change in Appetite, Change in Libido, Confusion, Depression, Difficulty Concentrating, Hallucinations, Homicidal Ideation, Hopelessness, Irritability, Memory Loss, Mood Swings, Panic Attacks, Paranoia, Suicidal Ideation, Visual Hallucinations, Tactile Hallucinations, Other - Endocrine Endocrine: absent: As Per HPI, Change in Body Appearance, Change in Libido, Cold Intolorance, Deepening of Voice, Excessive Sweating, Fatigue, Flushing, Heat Intolorance, Increase in Ring/Shoe/Hat Size, Palpitations, Polydipsia, Polyphagia, Polyuria, Other Past Patient History - Past Medical History & Family History Past Medical History?: Yes - Past Social History Smoking Status: Never Smoked - CARDIAC Hx Cardiac Disorders: Yes Hx Hypertension: Yes Hx Pacemaker: Yes Other/Comment: aortic and mitral valve replacement - PULMONARY Hx Respiratory Disorders: No - NEUROLOGICAL Hx Neurological Disorder: Yes Hx Transient Ischemic Attacks (TIA): Yes - HEENT Hx HEENT Problems: No - RENAL Hx Chronic Kidney Disease: No - ENDOCRINE/METABOLIC Hx Endocrine Disorders: Yes Hx Diabetes Mellitus Type 2: Yes Hx Hypothyroidism: Yes - HEMATOLOGICAL/ONCOLOGICAL Hx Blood Disorders: No - INTEGUMENTARY Hx Dermatological Problems: No - MUSCULOSKELETAL/RHEUMATOLOGICAL Hx Musculoskeletal Disorders: No Hx Falls: No - GASTROINTESTINAL Hx Gastrointestinal Disorders: No - GENITOURINARY/GYNECOLOGICAL Hx Genitourinary Disorders: No - PSYCHIATRIC Hx Psychophysiologic Disorder: No Hx Substance Use: No - SURGICAL HISTORY Hx Surgeries: Yes Other/Comment: aortic and mitral valve replacement; pacemaker - ANESTHESIA Hx Anesthesia: Yes Hx Anesthesia Reactions: No Hx Malignant Hyperthermia: No Meds Allergies/Adverse Reactions: Allergies Allergy/AdvReac Type Severity Reaction Status Date / Time Penicillins Allergy RASH Verified 12/02/16 08:27 - Medications Medications: Current Medications Insulin Human Regular (Humulin R) [address] [facility] PRN Reason: Protocol Last Admin: 12/10/16 12:15 Dose: 1 units Levothyroxine Sodium (Synthroid) 50 mcg PO DAILY@0630 [facility] Last Admin: 12/10/16 06:35 Dose: 50 mcg Losartan Potassium (Cozaar) 100 mg PO DAILY [facility] Last Admin: 12/10/16 08:52 Dose: 100 mg Metformin HCl (Glucophage) 1,000 mg PO BID [facility] Last Admin: 12/10/16 08:53 Dose: 1,000 mg Metoprolol Succinate (Toprol Xl) 50 mg PO DAILY [facility] Last Admin: 12/10/16 08:54 Dose: 50 mg Sitagliptin Phosphate (Januvia) 50 mg PO DAILY [facility] Last Admin: 12/10/16 08:53 Dose: 50 mg Physical Exam - Constitutional Appears: Non-toxic - Head Exam Head Exam: NORMAL INSPECTION - Eye Exam Eye Exam: Normal appearance - ENT Exam ENT Exam: Mucous Membranes Moist - Neck Exam Neck exam: Positive for: Full Rom - Respiratory Exam Respiratory Exam: NORMAL BREATHING PATTERN - Cardiovascular Exam Cardiovascular Exam: REGULAR RHYTHM, Systolic Murmur - GI/Abdominal Exam GI & Abdominal Exam: Normal Bowel Sounds - Rectal Exam Rectal Exam: Deferred - Extremities Exam Extremities exam: Positive for: pedal edema - Back Exam Back exam: NORMAL INSPECTION - Neurological Exam Neurological exam: Alert, Oriented x3 - Psychiatric Exam Psychiatric exam: Normal Affect - Skin Skin Exam: Normal Color Results - Vital Signs Recent Vital Signs: Last Vital Signs Temp 97.8 F 12/10/16 12:19 Pulse 96 H 12/10/16 12:19 Resp 18 12/10/16 12:19 BP 124/78 12/10/16 12:19 Pulse Ox 97 12/10/16 12:19 - Labs Result Diagrams: 12/10/16 06:30 12/07/16 06:10 Labs: Laboratory Results - last 24 hr 12/09/16 12/09/16 12/10/16 16:11 21:49 05:19 WBC RBC Hgb Hct MCV MCH MCHC RDW Plt Count PT INR POC Glucose (mg/dL) 148 H 104 144 H 12/10/16 12/10/16 12/10/16 06:30 06:30 11:20 WBC 4.6 L RBC 2.68 L Hgb 8.4 L Hct 23.9 L MCV 89.1 MCH 31.5 H MCHC 35.3 RDW 13.5 Plt Count 251 PT 12.8 INR 1.1 POC Glucose (mg/dL) 170 H - EKG Data EKG Interpreted by: Myself Assessment & Plan (1) First degree AV block Assessment and Plan: can be common in patients after mitral valve surgery. patient has PPM, therefore recommend continued therapy. Status: Acute (2) Valvular heart disease Assessment and Plan: s.p porcine valve replacement. recommend INR closer to 2. The aptient does not have mechanical vlaves, therefore does not need higher INR Status: Acute (3) Anemia Assessment and Plan: GI follow up Status: Acute (4) HTN (hypertension) Assessment and Plan: controlled Status: Acute
[2016-12-11] MEDS: Insulin Regular 100 units/ml SC SCH ×4 (06:43→22:00)
[2016-12-11] MEDS: Levothyroxine 50 MCG TAB PO SCH (06:43)
--- NOTE | 2016-12-11 08:28 | CARD ---
APPROVED REPORT EKG Measurement Heart [id number] <Conclusion> Sinus rhythm with 1st degree AV block Nonspecific ST and T wave abnormality Abnormal ECG
[2016-12-11] MEDS: Enoxaparin 60 mg Syringe SC SCH ×2 (08:51→21:19)
[2016-12-11] MEDS: Metoprolol Succinate 50 mg XL Tab PO SCH (08:51)
--- NOTE | 2016-12-11 19:29 | CP.PCM.PN ---
Subjective - Date & Time of Evaluation Date of Evaluation: 12/11/16 Time of Evaluation: 19:20 - Subjective Subjective: patient feels well. denies chest pain or dypsnea. no epistaxis. Objective - Vital Signs/Intake and Output Vital Signs (last 24 hours): Temp Pulse Resp BP Pulse Ox 98 F 90 20 141/84 100 12/11/16 19:21 12/11/16 19:21 12/11/16 19:21 12/11/16 19:21 12/11/16 19:21 - Medications Medications: Current Medications Enoxaparin Sodium (Lovenox) 45 mg SC Q12 [facility] Reason: Protocol Last Admin: 12/11/16 08:51 Dose: 45 mg Insulin Human Regular (Humulin R) 0 units SC ACHS [facility] PRN Reason: Protocol Last Admin: 12/11/16 16:31 Dose: Not Given Levothyroxine Sodium (Synthroid) 50 mcg PO DAILY@0630 [facility] Last Admin: 12/11/16 06:43 Dose: 50 mcg Losartan Potassium (Cozaar) 100 mg PO DAILY [facility] Last Admin: 12/11/16 08:44 Dose: 100 mg Metformin HCl (Glucophage) 1,000 mg PO BID [facility] Last Admin: 12/11/16 16:31 Dose: 1,000 mg Metoprolol Succinate (Toprol Xl) 50 mg PO DAILY [facility] Last Admin: 12/11/16 08:51 Dose: 50 mg Sitagliptin Phosphate (Januvia) 50 mg PO DAILY [facility] Last Admin: 12/11/16 08:40 Dose: 50 mg - Labs Labs: 12/10/16 06:30 12/07/16 06:10 PT 13.8 Seconds (9.8-13.1) H 12/11/16 05:50 INR 1.2 (0.9-1.2) 12/11/16 05:50 APTT 27.2 SECONDS (23.3-32.5) 12/07/16 06:10 - Constitutional Appears: Non-toxic - Head Exam Head Exam: NORMAL INSPECTION - Eye Exam Eye Exam: Normal appearance - ENT Exam ENT Exam: Mucous Membranes Moist - Neck Exam Neck Exam: Full ROM - Respiratory Exam Respiratory Exam: NORMAL BREATHING PATTERN - Cardiovascular Exam Cardiovascular Exam: REGULAR RHYTHM - GI/Abdominal Exam GI & Abdominal Exam: Normal Bowel Sounds - Rectal Exam Rectal Exam: Deferred - Extremities Exam Extremities Exam: absent: Pedal Edema - Back Exam Back Exam: NORMAL INSPECTION - Neurological Exam Neurological Exam: Alert - Psychiatric Exam Psychiatric exam: Normal Affect - Skin Skin Exam: Normal Color Assessment and Plan (1) First degree AV block Assessment & Plan: PPM Status: Acute (2) Valvular heart disease Assessment & Plan: not in CHF Status: Acute (3) Anemia Assessment & Plan: stable Status: Acute (4) HTN (hypertension) Assessment & Plan: blood pressure control Status: Acute
[2016-12-12] MEDS: Levothyroxine 50 MCG TAB PO SCH (05:52)
[2016-12-12] MEDS: Insulin Regular 100 units/ml SC SCH ×3 (06:37→16:28)
[2016-12-12 06:50] LABS: HEMATOCRIT 25.9 % (34.0-47.0); MEAN CELL VOLUME 90.7 fl (81.0-99.0); MEAN CORPUSCULAR HEMOGLOBIN 30.8 pg (27.0-31.0); RED CELL DISTRIBUTION WIDTH 13.8 % (11.5-14.5); WHITE BLOOD COUNT 4.3 K/uL (4.8-10.8)
[2016-12-12] MEDS: Metoprolol Succinate 50 mg XL Tab PO SCH (08:38)
[2016-12-12] MEDS: Enoxaparin 60 mg Syringe SC SCH (08:39)
--- NOTE | 2016-12-12 14:11 | CP.PCM.PCO ---
Assessment & Plan - Assessment and Plan (Free Text) Assessment: 76 yr old female with pmhx AVR,MVR, Afib admitted with Epistaxix, hypotension Contacted patient's PMD/ [employer] office in [facility] at [phone], as per their records patient is on anticoagulation with coumadin for Afib, last INR was 1.9, patient was given coumadin 6 mg by penology teacher currently INR 1.3/ patient will be discharged on Eliquis 5 mg po bid as per . Patient will f / u with pmd Dr. Bebeto Arevalo and [employer] outpatient in [place]
[2016-12-12 15:39] VITALS: BP 136/78; PULSE 94; RESP 20; TEMP 97.9; O2SAT 97
--- NOTE | 2016-12-12 17:04 | CP.PCM.DIS ---
Provider - Provider Date of Admission: 12/03/16 11:00 Attending physician: Salvatore Mtz MD Time Spent in preparation of Discharge (in minutes): 30 Diagnosis - Discharge Diagnosis (1) H/O aortic valve replacement Status: Acute (2) H/O mitral valve replacement Status: Acute (3) Anemia Status: Acute (4) Epistaxis Status: Acute Hospital Course - Lab Results Lab Results: Most Recent Lab Values WBC 4.3 K/uL (4.8-10.8) L 12/12/16 06:15 RBC 2.85 Mil/uL (3.80-5.20) L 12/12/16 06:15 Hgb 8.8 g/dL (12.0-16.0) L 12/12/16 06:15 Hct 25.9 % (34.0-47.0) L 12/12/16 06:15 MCV 90.7 fl (81.0-99.0) 12/12/16 06:15 MCH 30.8 pg (27.0-31.0) 12/12/16 06:15 MCHC 34.0 g/dL (33.0-37.0) 12/12/16 06:15 RDW 13.8 % (11.5-14.5) 12/12/16 06:15 Plt Count 257 K/uL (130-400) 12/12/16 06:15 MPV 7.4 fl (7.2-11.7) 12/02/16 09:10 Neut % (Auto) 71.2 % (50.0-75.0) 12/02/16 09:10 Lymph % (Auto) 18.9 % (20.0-40.0) L 12/02/16 09:10 Stephenson % (Auto) 7.0 % (0.0-10.0) 12/02/16 09:10 Eos % (Auto) 2.6 % (0.0-4.0) 12/02/16 09:10 Baso % (Auto) 0.3 % (0.0-2.0) 12/02/16 09:10 Neut # 4.0 K/uL (1.8-7.0) 12/02/16 09:10 Lymph # 1.1 K/uL (1.0-4.3) 12/02/16 09:10 Stephenson # 0.4 K/uL (0.0-0.8) 12/02/16 09:10 Eos # 0.1 K/uL (0.0-0.7) 12/02/16 09:10 Baso # 0.0 K/uL (0.0-0.2) 12/02/16 09:10 PT 14.6 Seconds (9.8-13.1) H 12/12/16 06:15 INR 1.3 (0.9-1.2) H 12/12/16 06:15 APTT 27.2 SECONDS (23.3-32.5) 12/07/16 06:10 Sodium 134 mmol/l (132-148) 12/07/16 06:10 Potassium 5.1 MMOL/L (3.6-5.0) H 12/07/16 06:10 Chloride 101 mmol/L (98-107) 12/07/16 06:10 Carbon Dioxide 25 mmol/L (22-30) 12/07/16 06:10 Anion Gap 13 (10-20) 12/07/16 06:10 BUN 23 mg/dl (7-17) H 12/07/16 06:10 Creatinine 0.9 mg/dL (0.7-1.2) 12/07/16 06:10 Est GFR ( Amer) > 60 12/07/16 06:10 Est GFR (Non-Af Amer) > 60 12/07/16 06:10 POC Glucose (mg/dL) 189 mg/dL (65-110) H 12/12/16 15:48 Random Glucose 97 mg/dL (65-105) 12/07/16 06:10 Calcium 9.1 mg/dL (8.4-10.2) 12/07/16 06:10 Total Bilirubin 0.2 mg/dl (0.2-1.3) 12/07/16 06:10 AST 26 U/L (14-36) 12/07/16 06:10 ALT 24 U/L (9-52) 12/07/16 06:10 Alkaline Phosphatase 45 U/L (38-126) 12/07/16 06:10 Total Protein 6.9 G/DL (6.3-8.2) 12/07/16 06:10 Albumin 3.8 g/dL (3.5-5.0) 12/07/16 06:10 Globulin 3.1 gm/dL (2.2-3.9) 12/07/16 06:10 Albumin/Globulin Ratio 1.2 (1.0-2.1) 12/07/16 06:10 Stool Occult Blood Positive (NEGATIVE) H 12/04/16 05:00 - Hospital Course Hospital Course: 76 yr old F with h/o aortic and mitral valve replacement (porcine) and pacemaker on Coumadin was admitted for epistaxis, which resolved throughout hospital course. Patient was also noted to have anemia. GI consulted, EGD was performed. Cardiology was consulted. Patient improved throughout admission though INR continued to be subtherapeutic. Spoke with patient's PMD regarding INR, recommended that patient can be discharged and follow up with PMD as outpatient this week. Discharge Exam - Head Exam Head Exam: ATRAUMATIC, NORMAL INSPECTION, NORMOCEPHALIC - Eye Exam Eye Exam: EOMI, Normal appearance, PERRL - Respiratory Exam Respiratory Exam: Clear to PA & Lateral, NORMAL BREATHING PATTERN, UNREMARKABLE - Cardiovascular Exam Cardiovascular Exam: REGULAR RHYTHM, RRR, +S1, +S2 - GI/Abdominal Exam GI & Abdominal Exam: Normal Bowel Sounds, Soft, Unremarkable. absent: Tenderness - Extremities Exam Extremities exam: normal inspection - Back Exam Back exam: NORMAL INSPECTION - Neurological Exam Neurological exam: Alert, CN II-XII Intact, Normal Gait, Oriented x3 - Psychiatric Exam Psychiatric exam: Normal Affect, Normal Mood - Skin Skin Exam: Dry, Intact, Normal Color, Warm Discharge Plan - Discharge Medications Prescriptions: Ferrous Sulfate [Feosol] 325 mg PO BID #30 tab Warfarin [Coumadin] 6 mg PO 1800 #3 tab - Follow Up Plan Condition: FAIR Disposition: HOME/ ROUTINE Instructions: Warfarin (By mouth), Vitamin K in Foods (DC), Anemia (DC), Warfarin Toxicity (GEN) Additional Instructions: patient cleared for discharge to Home today by and Dr. Win as per , pt. may be discharged on coumadin pt. will f/u at [facility] in [facility] with pmd Dr. Arevalo and cardiology Rx for meds provided Referrals: Salvatore Mtz MD [Staff Provider] -
== END 2016-12-12 19:20 | disposition home health service (06) | DRG 151 ==
LOC: H.ER 08:17 → H.ERHOLD 11:08 → H.TEL 20:59 → OBSVTOIN 12-03 11:00
PROVIDERS: ADMIT Internal Medicine; ATTEND Internal Medicine
PROC: 0DB38ZX Excision of Lower Esophagus, Via Natural or Artificial Opening Endoscopic, Diagnostic (ICD-10-PCS; 2016-12-06)
PROC: 0DB98ZX Excision of Duodenum, Via Natural or Artificial Opening Endoscopic, Diagnostic (ICD-10-PCS; principal; 2016-12-06 13:00)
DX: R04.0 Epistaxis (principal); D68.32 Hemorrhagic disorder due to extrinsic circulating anticoagulants; I95.2 Hypotension due to drugs; T45.515A Adverse effect of anticoagulants, initial encounter; D64.9 Anemia, unspecified; E11.9 Type 2 diabetes mellitus without complications; I10 Essential (primary) hypertension; I48.91 Unspecified atrial fibrillation; I44.0 Atrioventricular block, first degree; E03.9 Hypothyroidism, unspecified; J34.2 Deviated nasal septum; Z95.2 Presence of prosthetic heart valve; Z95.0 Presence of cardiac pacemaker; Z79.01 Long term (current) use of anticoagulants; Z88.0 Allergy status to penicillin; Z86.73 Personal history of transient ischemic attack (TIA), and cerebral infarction without residual deficits; Y92.89 Other specified places as the place of occurrence of the external cause